=== PATIENT | female | born 1945 | race Caucasian/White ===

== ENCOUNTER 2019-01-20 20:55 | Emergency (ER) | payer OTHER ==
[~2019-01-20] VITALS: Ht 160 cm; Wt 72.6 kg
[2019-01-20] MEDS ORDERED: NAPROXEN 500 MG TABLET PO ONE (22:30)
[2019-01-20] MEDS ORDERED: CYCLOBENZAPRINE 10 MG TABLET. PO ONE (22:30)
[2019-01-20] MEDS ORDERED: HYDROcodone/APAP 5/325MG 1 TAB TABLET PO ONE (22:30)
--- NOTE | 2019-01-20 23:03 | RAD ---
Single view pelvis and two-view left hip dated 01/20/2019. No comparison available. Clinical data indication: Pain after fall. Findings compare single AP view pelvis and two-view left hip show normal bony alignment. No displaced fracture. No acute osseous or articular abnormality. Mild hypertrophic change of the bilateral hip joint. Spondylotic change of the lower lumbar spine. IMPRESSION: No evidence of displaced fracture. If there is persistent clinical concern for occult fracture or insufficiency fracture, MRI would better evaluate. Electronically signed by: Deandre Stahl MD (01/20/2019 11:00 PM) [facility]
--- NOTE | 2019-01-20 23:13 | RAD ---
Examination: 2 views of the lumbar spine HISTORY: History of fall, pain COMPARISON: None available. FINDINGS: The lumbar vertebral body heights and maintained. Moderate disc height loss identified in the lumbar spine. There is 4 mm anterolisthesis of L5 on S1. Moderate facet degenerative changes. Small anterior osteophyte formation identified in the lumbar spine. IMPRESSION: Moderate degenerative changes lumbar spine. Electronically signed by: Dex Mendoza MD (01/20/2019 11:10 PM) [facility]
[2019-01-20] MEDS ORDERED: fentaNYL PF VIAL 100 MCG/2 ML VIAL IM ONE (23:45)
[2019-01-20] MEDS ORDERED: METH4TAB2 PO (23:50)
[2019-01-20] MEDS ORDERED: HYDR-3164 PO (23:50)
[2019-01-20] MEDS ORDERED: CYCL10TA2 PO (23:50)
--- NOTE | 2019-01-20 23:50 | PHYS DOC ---
Past Medical History Past Medical History: High Cholesterol Past Surgical History: Cholecystectomy, Tonsillectomy Alcohol Use: None Drug Use: None Adult General Chief Complaint Chief Complaint: HIP PAIN HPI HPI Patient is a 73 year old female with history of high cholesterol who presents to the ED today complaining of 8 out of 10 left low back pain radiating to the left hip into the left lower extremity that began after she fell today. Patient denies any loss of consciousness. She states the pain is worse on weight bearing and sitting on the side she fell on. Denies any numbness or tingling to bilateral lower extremities. Denies any loss of bowel/ bladder function. Review of Systems Review of Systems Constitutional: Denies fever or chills [] : Denies dysuria or hematuria [] Musculoskeletal: Reports left low back pain radiating into the left hip into the left leg Integument: Denies rash or skin lesions [] Neurologic: Denies headache, focal weakness or sensory changes [] All other systems were reviewed and found to be within normal limits, except as documented in this note. Current Medications Current Medications Current Medications Medications (Trade) Dose Ordered Sig/Felix Start Time Stop Time Status Last Admin Dose Admin Acetaminophen/ Hydrocodone Bitart (Lortab 5/325) 2 tab 1X ONCE 01/20/19 22:30 01/20/19 22:31 DC 01/20/19 22:07 2 TAB Cyclobenzaprine HCl (Flexeril) 10 mg 1X ONCE 01/20/19 22:30 01/20/19 22:31 DC 01/20/19 22:06 10 MG Fentanyl Citrate (Fentanyl 2ml Vial) 50 mcg 1X ONCE 01/20/19 23:45 01/20/19 23:46 DC Naproxen (Naprosyn) 500 mg 1X ONCE 01/20/19 22:30 01/20/19 22:31 DC 01/20/19 22:06 500 MG Allergies Allergies Allergies Coded Allergies Type Severity Reaction Last Updated Verified No Known Drug Allergies 01/20/19 No Physical Exam Physical Exam Constitutional: Well developed, well nourished, no acute distress, non-toxic appearance. [] Skin: Warm, dry, no erythema, no rash. [] Back: No tenderness, no CVA tenderness. [] Extremities: Diffuse paraspinal muscle tenderness the left lumbar spine worse on the left SI joint, no midline lumbar spine tenderness. Positive straight leg raises at approximately 45. +2 bilateral pedal pulses. Cap refill less than 2 s econds bilateral lower extremities. Neurologic: Alert and oriented X 3, normal motor function, normal sensory function, no focal deficits noted. [] Psychologic: Affect normal, judgement normal, mood normal. [] Current Patient Data Vital Signs Vital Signs Date Time Temp Pulse Resp B/P (MAP) Pulse Ox O2 Delivery O2 Flow Rate FiO2 01/20/19 22:07 18 01/20/19 21:57 97.9 78 171/74 (106) 95 Room Air 97.9 EKG EKG [] Radiology/Procedures Radiology/Procedures []PROCEDURE: LUMBAR SPINE 2-3V Examination: 2 views of the lumbar spine HISTORY: History of fall, pain COMPARISON: None available. FINDINGS: The lumbar vertebral body heights and maintained. Moderate disc height loss identified in the lumbar spine. There is 4 mm anterolisthesis of L5 on S1. Moderate facet degenerative changes. Small anterior osteophyte formation identified in the lumbar spine. IMPRESSION: Moderate degenerative changes lumbar spine. Electronically signed by: Dex Mendoza MD (01/20/2019 11:10 PM) [facility] DICTATED and SIGNED BY: DEX MENDOZA MD DATE: 01/20/19 174 PROCEDURE: HIP LEFT 2V WITH PELVIS Single view pelvis and two-view left hip dated 01/20/2019. No comparison available. Clinical data indication: Pain after fall. Findings compare single AP view pelvis and two-view left hip show normal bony alignment. No displaced fracture. No acute osseous or articular abnormality. Mild hypertrophic change of the bilateral hip joint. Spondylotic change of the lower lumbar spine. IMPRESSION: No evidence of displaced fracture. If there is persistent clinical concern for occult fracture or insufficiency fracture, MRI would better evaluate. Electronically signed by: Deandre Stahl MD (01/20/2019 11:00 PM) [facility] DICTATED and SIGNED BY: DEANDRE STAHL MD DATE: 01/20/19 230 Course & Med Decision Making Course & Med Decision Making Pertinent Labs and Imaging studies reviewed. (See chart for details) This is a 73-year-old female patient presenting to the ED today with low back pain radiating into the hip into her left leg after falling. No loss of consciousness. X-rays of the lumbar spine were noted for DJD otherwise no acute findings. Left hip x-rays are negative for any acute findings. Discharged to home. Ice elevation or heat recommended. Follow-up with primary care doctor in the course of next week. Dragon Disclaimer Dragon Disclaimer This electronic medical record was generated, in whole or in part, using a voice recognition dictation system. Departure Departure Impression: Primary Impression: Fall from standing Additional Impressions: Low back pain Left hip pain Sciatica of left side Degenerative joint disease (DJD) of lumbar spine Disposition: HOME, SELF-CARE Condition: STABLE Referrals: GERTRUDE TRUONG MD (PCP) follow up in one week Patient Instructions: Back Pain, Adult, Sciatica with Rehab-SportsMed Additional Instructions: You evaluated in the emergency room for pain after falling. Your x-rays were negative for any acute findings. Please follow-up with your own doctor in the course of next week. Try to apply heat or ice to the affected area and keep it elevated. Scripts Cyclobenzaprine Hcl (CYCLOBENZAPRINE HCL) 10 Mg Tablet 1 TAB PO TID, #30 TAB Prov: VICKI AVILA APRN 01/20/19 Methylprednisolone (MEDROL) 4 Mg Tab.ds.pk 1 PKG PO UD, #1 PKG Prov: VICKI AVILA APRN 01/20/19 Hydrocodone/Apap 5-325 (NORCO 5-325 TABLET) 1 Each Tablet 1 TAB PO Q4-6HRS, #12 TAB 0 Refills Prov: VICKI AVILA APRN 01/20/19 Problem Qualifiers Primary Impression: Fall from standing Encounter type: initial encounter Qualified Codes: W19.XXXA - Unspecified fall, initial encounter Additional Impressions: Low back pain Chronicity: acute Back pain laterality: left Sciatica presence: with sciatica Sciatica laterality: sciatica laterality unspecified Qualified Codes: M54.40 - Lumbago with sciatica, unspecified side Degenerative joint disease (DJD) of lumbar spine Spinal osteoarthritis complication: unspecified spinal osteoarthritis Qualified Codes: M47.816 - Spondylosis without myelopathy or radiculopathy, lumbar region VICKI AVILA APRN Jan 20, 2019 23:50
[2019-01-21 00:10] VITALS: BP 178/77
[2019-02-21] MEDS ORDERED: CHOL10003 PO (13:37)
[2019-02-21] MEDS ORDERED: ATOR20TA58 PO (13:37)
[2019-02-21] MEDS ORDERED: DULO60CA6 PO (13:37)
[2019-02-21] MEDS ORDERED: CALC-178 PO (13:37)
== END 2019-01-21 00:25 | disposition home or self-care (01) ==
LOC: ER 20:55
DX: M47.816 Spondylosis without myelopathy or radiculopathy, lumbar region (principal); M54.42 Lumbago with sciatica, left side; M25.552 Pain in left hip; E78.00 Pure hypercholesterolemia, unspecified; Z90.49 Acquired absence of other specified parts of digestive tract; Z90.89 Acquired absence of other organs; W18.39XA Other fall on same level, initial encounter; Y93.89 Activity, other specified; Y92.89 Other specified places as the place of occurrence of the external cause; Y99.8 Other external cause status
CPT/HCPCS: 72100; 73502; 96372; 99284; J3010

== ENCOUNTER → 2019-02-21 | Outpatient (CLI) | payer OTHER ==
[~2019-02-21] MED LIST: ATOR20TA58 PO; CALC-178 PO; CHOL10003 PO; CYCL10TA2 PO; DULO60CA6 PO; HYDR-3164 PO; METH4TAB2 PO
--- NOTE | 2019-02-22 00:52 | PAIN ---
DATE OF SERVICE: 02/21/2019 INITIAL CONSULTATION FOR PAIN CLINIC CHIEF COMPLAINT: Low back and left lower extremity pain. HISTORY OF PRESENT ILLNESS: This is a 73-year-old female who presents with history of pain in low back and left lower extremity for many years, increased over the past 6 months or so without any specific injury or action that she is aware of. Reports it has been getting worse pain in the low back radiating to posterior left hip, left anterior thigh, lateral thigh, and medial thigh. On the left side, the patient reports it is sharp, stabbing, shooting, intermittent in intensity, but always present, tingling, numbness, worse with walking, standing, changing positions, better with sitting or lying down. The patient reports it does awaken her from sleep at least once a night. The patient reports it does not affect her bowel or bladder control or ability to walk significantly, but her leg does fatigue easily on the left side. The patient reports that she has had some chiropractic treatment, which is helpful, but only limited. She also did some therapy on her own and doing some stretching and strengthening using a stationary bicycle, which she feels helps as well. The patient rates her disability rating from 0-10, 10 being the worst, is a 5 with family home responsibilities, social activity, occupation and sexual behavior, 10 with recreation, 0 with self-care and life support activities. The patient reports no loss of motor function, but significant fatigability with left lower extremity with activity more than about 10-15 minutes, especially with walking. The patient did have a lumbar MRI scan showing multilevel lumbar spondylosis with mild progression of central stenosis at L4-L5 from previous exam of 2019. The patient reports it shows L4-L5 disk bulge and hypertrophic changes, left greater than right with mild central stenosis, moderate bilateral neural foraminal narrowing with slight increase in neural foraminal narrowing when compared to prior exam. PAST MEDICAL HISTORY: Significant for cigarette smoking, continues to smoke 1 pack a day for the past 50 years. Otherwise, she has been in fairly good health. PREVIOUS SURGERIES: The patient's previous surgeries include cholecystectomy, tonsillectomy, and cataract extractions. CURRENT MEDICATIONS: Include duloxetine and atorvastatin, vitamin D, calcium, and hydrocodone. ALLERGIES: The patient has no known drug allergies. FAMILY HISTORY: Significant for no major medical problems or conditions that she is aware of. SOCIAL HISTORY: The patient does not drink alcohol, does not use any illegal, illicit or recreational drugs, does smoke about a pack a day and continues to smoke and has a 50-[id number]-ovhl history. The patient is . Lives locally here in [place]. Reports she is currently retired. REVIEW OF SYSTEMS: The patient's review of systems is positive for those items mentioned in history of present illness. All systems reviewed and otherwise negative. It is complete, full and well documented on the patient's chart. PHYSICAL EXAMINATION: VITAL SIGNS: The patient's blood pressure is 116/66, pulse 75, respirations 16, temperature 97.5 degrees Fahrenheit, height is 5 feet 3 inches, weight is 162 pounds. GENERAL: The patient is awake, alert, oriented, appropriate, very pleasant demeanor. HEENT: Shows normocephalic, atraumatic. Extraocular movements are intact and symmetrical. Oral cavity: Mucous membranes moist and pink. Dentition is intact. NECK: Shows anterior throat supple without palpable lymphadenopathy noted. Swallow reflex symmetrical. CHEST: Shows normal on inspection. Breath sounds clear to auscultation bilaterally. HEART: Shows S1, S2 clear. No murmurs auscultated. ABDOMEN: Soft, nontender, nondistended. No palpable organomegaly is noted. No rebound or guarding demonstrated. BACK: Shows spine grossly in the midline. Slight exaggeration of thoracic kyphosis and minor flattening of lumbar lordotic curvature. Lumbar paraspinous muscle shows symmetrical on inspection, with palpation shows some moderate tenderness diffusely in the low lumbar distribution only without radiation, no trigger points, no asymmetry, atrophy or hypertrophy. No tenderness over the spinous processes, sacrum or sacroiliac regions. The patient has good rotational motion of lumbar spine, both laterally as well as extension and flexion without significant difficulty or pain reported. EXTREMITIES: The patient's lower extremities show deep tendon reflexes 1+ in the patellar and tendo calcaneus tendons. Motor exam is strong with 5/5 dorsiflexion, extension, quadriceps and hamstring flexion and symmetrical. Peripheral pulses are 1+ posterior tibia. No peripheral edema is noted. Straight leg raise noted to be negative for reproduction of radicular symptoms bilaterally. Gaenslen's and Bonilla's maneuvers are negative bilaterally as well. The patient is able to stand, stand on her toes without significant difficulty or loss of balance. The patient shows peripheral pulses at 1+ posterior tibia. No peripheral edema is noted. Lower extremities are warm and dry to touch, equal in color and appearance. The patient is able to stand, stand on her toes without significant difficulty or loss of balance, ambulates with a slight favoring gait favoring left lower extremity, but not using any assistive devices such as canes or walkers to ambulate. SKIN: Shows warm and dry, good turgor. No edema. No sores or rashes noted throughout. IMPRESSION: 1. This is a 73-year-old female with a long history of low back and left lower extremity pain, worse over the past 6 months or so in a radicular fashion following a L4-L5 dermatomal distribution, status post exercise on her own as well as chiropractic treatments without significant increase in improvement. 2. MRI scan of lumbar spine as noted. 3. Cigarette smoking. PLAN: Options were discussed with the patient including conservative medical managements, physical therapies and interventional techniques. She would like to pursue interventional techniques. We discussed a lumbar epidural steroid injection using description as well as anatomical models to describe the procedure. The patient will wait for preauthorization with her insurance provider. She has significant clinical left L4-L5 dermatomal distribution radiculopathy. We will wait for approval for a lumbar epidural steroid injection at the L4-L5 level, translaminar approach. In the meantime, the patient will continue with stretching and strengthening exercises on her own as best she can do as well as walking daily as tolerated. We discussed Medrol Dosepak, which she had one approximately 3 weeks ago and we will limit this as she has had some oral steroids recently. We will have her return once authorization is obtained and we will plan on lumbar epidural steroid injection at that time. PATTI BANUELOS MD DR: DHAVAL/evangelista JOB#: [id number] / [id number] GERTRUDE Gonzalez MD
== END | disposition home or self-care (01) ==
LOC: PNCL 12:56
PROVIDERS: ATTEND Anesthesiology
DX: M54.5 Low back pain (principal); M79.605 Pain in left leg; F17.210 Nicotine dependence, cigarettes, uncomplicated
CPT/HCPCS: G0463

== ENCOUNTER → 2019-08-24 | Outpatient (CLI) | payer MEDICARE ==
[~2019-08-24] MED LIST changes: +IBUP-1027 PO; +IOHEXOL 180 MG/ML 10 ML VIAL. ONE; +LIDO700A21 TP; +methylPREDNISolone ACETATE 40 MG/ML VIAL. ONE; +methylPREDNISolone ACETATE 80 MG/ML VIAL. ONE
--- NOTE | 2019-08-24 10:48 | PAIN ---
DATE OF SERVICE: 08/24/2019 PROGRESS NOTE FOR PAIN CLINIC DIAGNOSIS: Lumbar radiculopathy with lumbar degenerative disk disease, lumbar spinal stenosis. HISTORY OF PRESENT ILLNESS: The patient is a 74-year-old female, who returns for followup status post initial evaluation and preauthorization for epidural steroid injection. The patient returns now with an authorization wishing to proceed, still pain in the low back, left lower extremity, posterior gluteus, posterolateral thigh, lateral anterior thigh, medial thigh, medial lower leg and numbness in the left foot, especially the big toe. The patient reports it is worse with walking, standing, changing positions; describes the pain as aching, sharp, tight and shooting across the back, cramping in the back as well, constant and shooting in the left foot with numbness in the left foot. The patient reports it is an 8 on a scale of 10 at its worst, 8 on an average, 8 at its least over the past week and is an 8 today. The patient reports no new motor or sensory deficits, no new bowel or bladder incontinence. PHYSICAL EXAMINATION: VITAL SIGNS: The patient's blood pressure is 140/69, pulse 67, respirations 16, temperature 97.6 degrees Fahrenheit, height is 5 feet 4 inches, weight is 162 pounds. GENERAL: The patient is awake, alert, oriented, appropriate, very pleasant demeanor. HEENT: Shows normocephalic, atraumatic. Extraocular movements are intact and symmetrical. Oral cavity: Mucous membranes moist and pink; dentition is intact. NECK: Shows anterior throat supple without palpable lymphadenopathy noted. Swallow reflex symmetrical. CHEST: Shows normal on inspection. Breath sounds clear to auscultation bilaterally. HEART: Shows S1, S2 clear. No murmurs auscultated. ABDOMEN: Obese, soft, nontender and nondistended. BACK: Shows spine grossly in the midline, slight exaggerated thoracic kyphosis and minor flattening of lumbar lordotic curvature. Lumbar paraspinous muscle shows symmetrical on inspection, on palpation shows some moderate tenderness diffusely bilaterally going diffusely without significant radiation. EXTREMITIES: The patient's lower extremities show deep tendon reflexes are 1+ in the patellar and tendo-calcaneus tendons, are equal. Motor exam is strong with 5/5 dorsiflexion, extension, quadriceps and hamstring flexion. Peripheral pulses are 1+ posterior tibial. No peripheral edema bilaterally. Options were discussed with the patient. The patient's old chart was reviewed as well as her current medication regimen updated. Current review of systems updated today as well. We will proceed with a lumbar epidural steroid injection today with fluoroscopic guidance. Risks were discussed including but not limited to bleeding, infection, possibility of epidural hematoma, subsequent neurological compromise, dural puncture, headaches, spinal cord and/or nerve damage, side effects of steroid medication and poor results regarding pain control. The patient understands and wishes to proceed. The patient will return to clinic in approximately 2 weeks for followup. She was counseled as to the return appointment, activity level and side effects to be aware of. DIAGNOSIS: Lumbar radiculopathy with lumbar degenerative disk disease, lumbar spinal stenosis. PROCEDURE: Lumbar epidural steroid injection, translaminar approach, at L4-L5 level, using C-arm fluoroscopic guidance under sterile prep and drape using local anesthetic. MEDICATIONS INJECTED: A total of 120 mg Depo-Medrol plus 10 mL of preservative-free normal saline and 2 mL of contrast. CONDITION AT DISCHARGE: Stable. The patient tolerated the procedure well, had no complications. PATTI BANUELOS MD DR: DHAVAL/evangelista JOB#: [id number] / [id number]
== END ==
LOC: PNCL 09:00
PROVIDERS: ATTEND Anesthesiology
DX: M51.16 Intervertebral disc disorders with radiculopathy, lumbar region (principal); M48.061 Spinal stenosis, lumbar region without neurogenic claudication
CPT/HCPCS: 62323; J1030; J1040; Q9965

== ENCOUNTER → 2021-01-14 | Outpatient (CLI) | payer MEDICARE ==
[~2021-01-14] MED LIST changes: -IOHEXOL 180 MG/ML 10 ML VIAL. ONE; -methylPREDNISolone ACETATE 40 MG/ML VIAL. ONE; -methylPREDNISolone ACETATE 80 MG/ML VIAL. ONE
--- NOTE | 2021-01-14 14:30 | RAD ---
MG BILAT SCREEN+MELO 01/14/2021 1:00 PM INDICATION: Asymptomatic screening mammogram. COMPARISON: None available TECHNIQUE: 3D tomosynthesis was performed in CC and MLO projections. 2D views were obtained from the 3D data. CAD was utilized as needed. FINDINGS: Breast density: Category B: There are scattered areas of fibroglandular density. Right breast: There is a 5 mm focal asymmetry in the retroareolar right breast within the slightly up per outer right breast. Further evaluation with spot compression CC and MLO views as well as possible ultrasound is recommended. Left breast: There are no suspicious microcalcifications, masses or areas of architectural distortion . IMPRESSION: 1. Incomplete right mammogram. Additional imaging is recommended as detailed above. 2. Negative left mammogram. BI-RADS category: 0; Incomplete Recommendations: Recommend additional imaging for which the patient will need to be called back. Electronically signed by: Capri Oneal MD (01/14/2021 2:27 PM) [id number]
== END ==
LOC: MAMMO 13:00
PROVIDERS: ATTEND Family Medicine
DX: Z12.31 Encounter for screening mammogram for malignant neoplasm of breast (principal)
CPT/HCPCS: 77063; 77067

== ENCOUNTER → 2021-01-21 | Outpatient (CLI) | payer MEDICARE ==
[~2021-01-21] MED LIST changes: +CYCL10TA19 PO; -CYCL10TA2 PO; -DULO60CA6 PO; +DULO60CA7 PO
--- NOTE | 2021-01-21 10:42 | RAD ---
EXAMINATION: MG DIAGNOSTICUNILAT MAMMO History: Recalled from screening mammogram for focal asymmetry in the retroareolar right breast. Comparison: Screening mammogram 01/14/2021. Technique: Spot compression CC and MLO views of the right breast were performed. Subsequent right parveen ast ultrasound was performed in the retroareolar region. Findings: Breast Tissue Density B : There are scattered areas of fibroglandular density. The focal asymmetry in the retroareolar right breast does not definitively persist on spot compressio n. On ultrasound, there is normal fibroglandular tissue in the retroareolar region. No dilated ducts, cy st or mass. No axillary lymphadenopathy. IMPRESSION: No evidence of malignancy. Recommend routine screening mammogram in 12 months. BI-RADS category 1: Negative. Patient information is entered into the reminder system with a target due date for the next screening mammogram. Mammography is the most sensitive method for finding small breast cancers, but it does not detect the m all and is not a substitute for careful clinical examination. A negative mammogram does not negate a clinically suspicious finding and should not result in delay in biopsying a clinically suspicious a bnormality. "Our facility is accredited by the [employer] Mammography Program." Electronically signed by: Leatha Duarte MD (01/21/2021 10:39 AM) [facility]
--- NOTE | 2021-01-22 14:55 | RAD ---
EXAMINATION: Right breast diagnostic mammogram and right breast ultrasound. History: Recalled from screening mammogram for focal asymmetry in the retroareolar right breast. Comparison: Screening mammogram 01/14/2021. Technique: Spot compression CC and MLO views of the right breast were performed. Subsequent right parveen ast ultrasound was performed in the retroareolar region. Findings: Breast Tissue Density B : There are scattered areas of fibroglandular density. The focal asymmetry in the retroareolar right breast does not definitively persist on spot compressio n. On ultrasound, there is normal fibroglandular tissue in the retroareolar region. No dilated ducts, cy st or mass. No axillary lymphadenopathy. IMPRESSION: No evidence of malignancy. Recommend routine screening mammogram in 12 months. BI-RADS category 1: Negative. Patient information is entered into the reminder system with a target due date for the next screening mammogram. Mammography is the most sensitive method for finding small breast cancers, but it does not detect the m all and is not a substitute for careful clinical examination. A negative mammogram does not negate a clinically suspicious finding and should not result in delay in biopsying a clinically suspicious a bnormality. "Our facility is accredited by the [employer] Mammography Program." Electronically signed by: Leatha Duarte MD (01/22/2021 2:52 PM) [id number]
== END ==
LOC: MAMMO 09:10
PROVIDERS: ATTEND Family Medicine
DX: R92.8 Other abnormal and inconclusive findings on diagnostic imaging of breast (principal)
CPT/HCPCS: 76641; 77065

== ENCOUNTER → 2021-07-09 | Outpatient (CLI) | payer MEDICARE ==
--- NOTE | 2021-07-09 14:16 | KCIC ---
EXAM: DUAL ENERGY X-RAY ABSORPTIOMETRY (DEXA). HISTORY: Osteoporosis. FINDINGS: The lowest measured T-score is -2.3 in the left hip, based on a bone mineral density of 0.6 66 g/cm^2. Refer to the worksheets for full detail. No comparison examinations are available. IMPRESSION: 1. Low bone mass. Bone mineral density yields a T-score between -1.0 and -2.5. Fracture risk is incre ased. 2. FRAX report: Not calculated. METHODOLOGY: Dual energy x-ray absorptiometry was performed to measure bone mineral density. The foll owing analysis is based on the 2019 Official Positions of the International Society for Clinical Dens itometry: Measurements of the hips and the average of L1-L4 are preferred. When the spine and/or hip cannot be feasibly measured or interpreted, or in the setting of hyperparathyroidism, distal radial bone minera l density may be measured. The lumbar spine T-score is based on the average bone mineral density of L1-L4. In the setting of art ifact or anatomic abnormality, some lumbar levels may be excluded, and the remaining levels used for calculation. A single lumbar level is not used for diagnosis, and if only a single level is available for assessment, another anatomic site will be used to assign a diagnosis. The hip T-score is based on the bone mineral density measurement of the femoral neck or total proxima l femur of either side, whichever is lowest. Bilateral mean values are not used for diagnosis. The forearm T-score is derived from 33% of the distal radius of the nondominant forearm. Electronically signed by: Marii Almaguer MD (07/09/2021 2:14 PM) [id number]
== END ==
LOC: KCIC DEXA 12:57
PROVIDERS: ATTEND Family Medicine
DX: Z00.00 Encounter for general adult medical examination without abnormal findings (principal); M85.88 Other specified disorders of bone density and structure, other site
CPT/HCPCS: 77080

== ENCOUNTER → 2021-07-15 | Outpatient (CLI) | payer MEDICARE ==
--- NOTE | 2021-07-15 14:21 | KCIC ---
07/15/2021 Sonographic evaluation of the abdominal aorta, screening for AAA. CLINICAL HISTORY: AAA screening exam. History of smoking x50 years. TECHNIQUE: The abdominal aorta was examined from the diaphragm to the proximal common iliac arteries. FINDINGS: There is diffuse atherosclerotic vascular disease. Proximal abdominal aorta maximal diameter: 2.7 Mid abdominal aorta maximal diameter: 1.6 Distal abdominal aorta maximal diameter: 1.6 Right common iliac artery maximal visualized diameter: 1.2 Left common iliac artery maximum visualized diameter: 1.1 Visualized portions of the common iliac arteries are nonaneurysmal. IMPRESSION: Diffuse atherosclerotic vascular disease without evidence of abdominal aortic aneurysm. Recommended imaging follow-up intervals for enlarged infrarenal abdominal aorta: Less than 2.5 cm: 5-year interval 3.0-3.4 cm: 3-year interval 3.5-3.9 cm: 2-year interval 4.0-4.4 cm: 1-year interval 4.5-4.9 cm: 6-month interval, vascular surgery consultation 5.0-5.5 cm: Vascular surgery consultation Electronically signed by: Luis Posada MD (07/15/2021 2:18 PM) [id number]
== END ==
LOC: KCIC US 08:49
PROVIDERS: ATTEND Family Medicine
DX: Z00.00 Encounter for general adult medical examination without abnormal findings (principal); Z13.6 Encounter for screening for cardiovascular disorders; I70.0 Atherosclerosis of aorta; Z87.891 Personal history of nicotine dependence
CPT/HCPCS: 76770